=== PATIENT | female | born 1955 | race Caucasian/White ===

== ENCOUNTER 2023-05-01 06:09 | Day surgery (SDC) | payer BC, SELFPAY ==
--- NOTE | 2023-03-29 12:32 | CM ---
Patient is scheduled for an elective L TKR on 05/01/23- she is a same day patient. Spoke with patient prior to surgery. Introduced role of Orthopedic Navigator. Patient reports that she lives with her in a two story home. There are two steps
to enter and a flight of steps to the second floor. She plans to stay on the first floor. She currently functions independently and uses a rolling walker. She also has a cane, shower seat and raised toilet seat. She has never had [facility] services. PCP is
Edgar Coates.
Discussed orthopedic program and post surgical plans. Reviewed that she will have VN services initially and will then start outpatient PT. Patient selects [facility] (face sheet faxed to [facility] to facilitate confirmation of benefits) for his home care
needs and will go to for outpatient PT.
Patient is in agreement with plan and states that her will be home with her.
Patient will complete online education.
Plan: Orthopedic Navigator will remain available to assist with the care of patient and will reassess discharge needs after surgery.
[2023-04-12 08:58] VITALS: BMI 34.2
[2023-04-12 09:59] LABS: Hemoglobin 12.6 g/dL (12.0-16.0); Mean Corp Hgb Conc. 34.1 g/dL (33.0-37.0); Mean Corpuscular Hgb 31.6 pg (27.0-31.0); Mean Corpuscular Volume 92.7 fL (81.0-99.0); Mean Platelet Volume 10.9 fL (7.4-10.4); Platelet Count 248 10^3/uL (130-400); Red Blood Cell Count 3.99 10^6/uL (4.20-5.40); Red Cell Dist. Width 12.7 % (11.5-14.5); White Blood Cell Count 6.6 10^3/uL (4.8-10.8)
[2023-04-12 10:08] LABS: ALT (SGPT) 29 U/L (0-35); AST (SGOT) 32 U/L (14-36); Albumin 4.1 g/dl (3.5-5.0); Alkaline Phosphatase 83 U/L (38-126); Blood Urea Nitrogen 21 mg/dl (7-17); Calcium 9.1 mg/dl (8.4-10.2); Carbon Dioxide 28 mmol/L (22-30); Chloride 105 mmol/L (98-107); Estimated Creatinine Clearance 51 ml/min; Glucose 95 mg/dl (70-99); HDL Cholesterol 52 mg/dl; LDL Cholesterol, Calculated 101 mg/dl; Potassium 4.2 mmol/L (3.5-5.1); Sodium 138 mmol/L (135-145); Total Bilirubin 0.7 mg/dl (0.2-1.3); Total Cholesterol 171 mg/dl (50-199); Total Protein 6.6 g/dl (6.3-8.2); Triglyceride 93 mg/dl (10-149); Very Low Density Lipoprotein 18 mg/dl (0-30); eGFR > 60.00
[2023-04-12 14:46] VITALS: BMI 34.2
[2023-05-01] VITALS (14 sets, daily range): BP systolic 131–184; BP diastolic 67–98; PULSE 83; O2SAT 98; BMI 34.2
[2023-05-01] MEDS: CELEBREX 200 MG PO (06:42)
[2023-05-01] MEDS: TYLENOL 650 MG PO (06:42)
--- NOTE | 2023-05-01 07:50 | W.DS.TRANS ---
DC Summary - Television Service Engineer
-
Discharge Instructions:
Sleep Apnea Risk Low
Discharge Diagnosis/Procedures L TKA Dr. Simon 05/01/23
Diet As tolerated
Activity With Walker
Driving Restrictions No driving
Bathing Restrictions OK to Shower
Other Services PT,[facility]
Instructions:
Stand-Alone Forms: SDS Total Hip and Knee D/C
Changes to Home Medications: Yes
Discharge Medications:
DC Medications w/original date entered in [employer]
ascorbic acid (vitamin C) 500 mg tablet (Vitamin C) 1,000 mg PO DAILY 02/08/21
tohkkpzduj-eoayzygdthzap-jssymoia 50 mg-325 mg-40 mg capsule 1 cap PO BIDPRN PRN mirgraines 02/08/21
carvedilol 12.5 mg tablet 25 mg PO BID 02/08/21
cholecalciferol (vitamin D3) 25 mcg (1,000 unit) tablet 1,000 units PO DAILY 02/08/21
ezetimibe 10 mg tablet 10 mg PO QPM 02/08/21
hydralazine 25 mg tablet 50 mg PO BID 02/08/21
hydrochlorothiazide 12.5 mg tablet 12.5 mg PO DAILY 02/08/21
losartan 50 mg tablet 100 mg PO HS 02/08/21
multivitamin with folic acid 400 mcg tablet (Tab-A-Ricci) 1 tab PO DAILY 02/08/21
zinc gluconate 50 mg tablet 50 mg PO DAILY 02/08/21
diclofenac sodium 75 mg tablet,delayed release 75 mg PO DAILY 04/07/23
dicyclomine 20 mg tablet 20 mg PO DAILY 04/07/23
diphenhydramine HCl 25 mg capsule (Benadryl) 70 mg PO HS 04/07/23
evolocumab 140 mg/mL subcutaneous syringe (Repatha Syringe) 140 mg SC Q2W 04/07/23
tramadol 100 mg tablet 100 mg PO DAILY 04/07/23
cyclobenzaprine 5 mg tablet 5 mg PO BID muscle pain/sleep #30 tabs 04/12/23
dexamethasone 4 mg tablet 4 mg PO BID inflammation #6 tabs 04/12/23
famotidine 20 mg tablet 20 mg PO HS GI prophylaxis #30 tabs 04/12/23
gabapentin 300 mg capsule 300 mg PO HS sleep/pain #10 caps 04/12/23
meloxicam 15 mg tablet 15 mg PO DAILY anti-inflammatory #14 tabs 04/12/23
mupirocin 2 % topical ointment 1 applic topical BID infection prevention #1 tube 04/12/23
ondansetron 4 mg disintegrating tablet 4 mg PO Q6H PRN n/v #20 tabs 04/12/23
oxycodone 5 mg tablet 5 - 10 mg PO Q6HPRN PRN 1 tab moderate-2 tabs severe pain #30 tabs 04/12/23
acetaminophen 325 mg capsule (Tylenol) 650 mg PO QID #2 caps 05/01/23
aspirin 325 mg tablet 325 mg PO DAILY blood clot prevention #1 tab 05/01/23
docusate sodium 100 mg capsule (Colace) 100 mg PO BID stool softner #1 cap 05/01/23
magnesium hydroxide 400 mg/5 mL oral suspension (Milk of Magnesia) 30 ml PO HS PRN Constipation #1 mL 05/01/23
sennosides 8.6 mg tablet (Senokot) 17.2 mg PO BID laxative #2 tabs 05/01/23
Home Medication Changes
cyclobenzaprine 5 mg tablet 5 mg PO BID muscle pain/sleep #30 tabs 04/12/23
dexamethasone 4 mg tablet 4 mg PO BID inflammation #6 tabs 04/12/23
famotidine 20 mg tablet 20 mg PO HS GI prophylaxis #30 tabs 04/12/23
gabapentin 300 mg capsule 300 mg PO HS sleep/pain #10 caps 04/12/23
meloxicam 15 mg tablet 15 mg PO DAILY anti-inflammatory #14 tabs 04/12/23
mupirocin 2 % topical ointment 1 applic topical BID infection prevention #1 tube 04/12/23
ondansetron 4 mg disintegrating tablet 4 mg PO Q6H PRN n/v #20 tabs 04/12/23
oxycodone 5 mg tablet 5 - 10 mg PO Q6HPRN PRN 1 tab moderate-2 tabs severe pain #30 tabs 04/12/23
Pending Results: No
--- NOTE | 2023-05-01 10:30 | CM ---
Patient had planned L TKR today. Met with patient at bedside to review discharge plans. Patient will be returning home today with services through [facility]. On , 05/04, patient will start outpatient PT at . Reviewed MD follow up in two weeks
and patient has already scheduled her appointment.
Patient has her rolling walker here with her.
PT and [facility] were kept updated as to progress and discharge plans.
[2023-05-01] MEDS: ROXICODONE 5 MG PO (11:59)
[2023-05-01] MEDS: NORMOSOL-R 1000 IV (12:04)
[2023-05-01] MEDS: ANCEF 5 IV (12:33)
[2023-05-01] MEDS: TYLENOL 1000 MG PO (12:52)
--- NOTE | 2023-05-01 13:50 | PTCARENOTE ---
Patient post ambulation rated her pain above her left knee a 7/10 on the pain scale after ambulating with physical therapy. Patient stated she wants to go home and will take more pain medication at home as directed.
== END 2023-05-01 13:46 | disposition home health service (06) ==
LOC: SDS 06:09
PROVIDERS: ATTENDING PHYSICIAN Specialist; FAMILY PHYSICIAN Family Medicine; OTHER PHYSICIAN Internal Medicine Cardiovascular Disease; OTHER PHYSICIAN Physician Assistant Medical
DX: M17.12 Unilateral primary osteoarthritis, left knee (principal); E66.9 Obesity, unspecified; Z68.34 Body mass index [BMI] 34.0-34.9, adult; M51.36 Other intervertebral disc degeneration, lumbar region; I10 Essential (primary) hypertension; T39.395A Adverse effect of other nonsteroidal anti-inflammatory drugs [NSAID], initial encounter; Y93.89 Activity, other specified; K92.2 Gastrointestinal hemorrhage, unspecified
CPT/HCPCS: 27447; 36415; 73560; 80053; 80061; 83036; 85027; 87070; 97116; 97161; C1713; C1776

== ENCOUNTER 2023-05-18 12:59 | Outpatient (RCR) | payer BC, SELFPAY | END 2023-05-18 23:59 | disposition home or self-care (01) | LOC: RPT 12:59 | PROVIDERS: ATTENDING PHYSICIAN Specialist; FAMILY PHYSICIAN Family Medicine | DX: Z47.1 Aftercare following joint replacement surgery (principal); Z96.652 Presence of left artificial knee joint; Z73.6 Limitation of activities due to disability | CPT/HCPCS: 97110; 97112; 97116; 97140; 97162; 97530 ==

== ENCOUNTER 2023-05-31 06:46 | Outpatient (RCR) | payer BC, SELFPAY | END 2023-05-31 12:52 | disposition home or self-care (01) | LOC: RPT 06:46 | PROVIDERS: ATTENDING PHYSICIAN Specialist; FAMILY PHYSICIAN Family Medicine | DX: Z47.1 Aftercare following joint replacement surgery (principal); Z96.652 Presence of left artificial knee joint; Z73.6 Limitation of activities due to disability | CPT/HCPCS: 97110; 97530 ==

== ENCOUNTER → 2023-09-04 12:12 | Outpatient (REF) | payer BC, SELFPAY | LOC: HWRAD 12:12 | PROVIDERS: ATTENDING PHYSICIAN Internal Medicine Cardiovascular Disease; FAMILY PHYSICIAN Family Medicine | DX: R05.1 Acute cough (principal) | CPT/HCPCS: 71046 ==

== ENCOUNTER 2023-09-05 11:36 | Emergency (ER) | payer BC, SELFPAY ==
[2023-09-05 11:37] VITALS: BP 102/57
[2023-09-05 12:41] LABS: % Basophils 0.5 % (0-2); % Eosinophils 2.8 % (0-6); % Immature Granulocytes 0.2 % (0-0.5); % Lymphocytes 37.4 % (20.5-51.1); % Monocytes 11.4 % (1.7-9.3); % Neutrophils 47.7 % (42.2-75.2); Absolute Eosinophils 0.1 10^3/uL (0-0.7); Absolute Lymphocytes 1.6 10^3/uL (1.2-3.4); Absolute Monocytes 0.5 10^3/uL (0.1-0.6); Absolute Neutrophils 2.1 10^3/uL (1.4-6.5); Hematocrit 39.9 % (37.0-47.0); Hemoglobin 13.8 g/dL (12.0-16.0); Mean Corp Hgb Conc. 34.6 g/dL (33.0-37.0); Mean Corpuscular Hgb 30.9 pg (27.0-31.0); Mean Corpuscular Volume 89.3 fL (81.0-99.0); Mean Platelet Volume 10.3 fL (7.4-10.4); Nucleated Red Blood Cells % 0 %; Platelet Count 191 10^3/uL (130-400); Red Blood Cell Count 4.47 10^6/uL (4.20-5.40); Red Cell Dist. Width 12.4 % (11.5-14.5); White Blood Cell Count 4.3 10^3/uL (4.8-10.8)
[2023-09-05 12:57] LABS: Blood Urea Nitrogen 23 mg/dl (7-17); Calcium 9.1 mg/dl (8.4-10.2); Carbon Dioxide 25 mmol/L (22-30); Chloride 103 mmol/L (98-107); Glucose 117 mg/dl (70-99); Sodium 138 mmol/L (135-145); eGFR 41.49
[2023-09-05] MEDS: NSS 1000 IV (12:57)
[2023-09-05 13:04] VITALS: BP 98/56
--- NOTE | 2023-09-05 14:01 | ED.GENMED ---
History of Present Illness
General
Chief Complaint: Blood Pressure Problem
Source: patient, family and physician
Exam Limitations: none
Time Seen by Provider: 09/05/23 12:26
Nursing documentation reviewed up to this point in time: agreed with
Travel History
Have you had any contact with someone who has COVID-19?: No
Do you have any symptoms of coronavirus? Fever > 100 degrees, chills, cough, shortness of breath, sore throat, loss of taste or smell, muscle aches, or headache?: No
History of Present Illness
History of Present Illness:
68-year-old female with [place] history of hypertension hyperlipidemia presenting to the emergency department today after she had upper respiratory infection over the past few days noticed lightheadedness today while at work had a blood pressure
that was in the 80s over 40s and was sent to the ER. Denies any chest pain shortness of breath or additional concerns otherwise. Upper respiratory symptoms including nasal congestion cough.
Past History
Past History
ED Past Medical History: GERD, HTN, Hypercholesterolemia and Other (headaches/migraines; colitis January 2021)
ED Past Surgical History: Cholecystectomy
Social History
Tobacco: Non-smoker
Alcohol: None
Drug: None
Personal:
Living: with family
Employment: Employed (technology teacher office)
Family History
Family History: Other (Noncontributory)
Review of Systems
Review of Systems
Allergies reviewed?: Yes
All Other Systems: ROS reviewed and negative except as documented in HPI and ROS
Phy Exam
Physical Exam
Physical Exam:
GENERAL: Alert , in no apparent distress
EYE: pupils equal and reactive
NECK: Supple, no significant adenopathy.
ENT: Mild irritation of the posterior pharynx swollen boggy nasal turbinates o/p clr, mmm.
CARDIAC: Regular rate and rhythm .
LUNGS: Clear breath sounds bilaterally, no acute respiratory distress, no wheezes/rales/rhonchi
ABDOMEN: Soft, without focal tenderness, no r/g, no cvat
NEUROLOGICAL: Alert and oriented, no focal neuro deficits
SKIN: Warm and dry, skin intact.
MUSCULOSKELETAL: No edema, well perfused.
PSYCH: Normal and appropriate interaction.
Course
Orders/Labs/Results
Orders:
Orders
09/05/23 11:42
Electrocardiogram (*1) Urgent
Reason for Study: Chest Pain
EKG- Treatment ONCE
09/05/23 12:35
Basic Metabolic Panel Urgent
Complete Blood Count/With Diff Urgent
09/05/23 12:46
0.9% Sodium Chloride 1000 ml [Nss] 1,000 ml IV BOLUS
09/05/23 13:58
Orthostatic VS- Treatment ONCE
Vital Signs- Treatment ONCE
Frequency: Once
Abnormal Lab Results
09/05/23
12:35
WBC 4.3 L 10^3/uL
(4.8-10.8)
Monocytes % 11.4 H %
(1.7-9.3)
BUN 23 H mg/dl
(7-17)
Creatinine 1.4 H mg/dL
(0.6-1.0)
Glucose 117 H mg/dl
(70-99)
09/05/23 12:35
09/05/23 12:35
Vital Signs
Initial and Last Documented VS:
Initial Vital Signs
Temp Pulse Resp BP Pulse Ox
98.0 F 65 16 102/57 98
09/05/23 11:37 09/05/23 11:37 09/05/23 11:37 09/05/23 11:37 09/05/23 11:37
Last Documented Vital Signs
Temp Pulse Resp BP Pulse Ox
98.0 F 67 15 128/64 98
09/05/23 11:37 09/05/23 14:04 09/05/23 14:04 09/05/23 14:04 09/05/23 13:04
MDM/Problems Addressed
MDM/Problems Addressed:
68-year-old female presenting to the emergency department today with concerns of lightheadedness low blood pressure in the setting of recent upper respiratory syndrome. Upon arrival blood pressure in the low 100s over 50s. Pulse rate in the 60s
normal respiratory rate afebrile normal pulse ox. Labs did show an elevated creatinine level from patient's baseline which is typically 1.0 currently 1.4 could not some degree of dehydration. Patient was given a liter of fluid otherwise labs
unremarkable. EKG without acute findings. No emergent findings on examination. Lungs are clear heart sounds normal. She is able to tolerate by mouth. Blood pressure improving throughout ER stay stable for discharge at this time return
precautions given.
*Critical Care Note
Total Time (30-74mins, 75-104mins- exclusive of procedures): Not Applicable
ED Attending Note
-
Portions of this chart may have been created with voice recognition software.� Occasional wrong word or��sound alike� substitutions may have occurred due to the inherent limitations of voice recognition software.
Discharge Plan
Departure
Patient Disposition: Home (Routine Discharge)
Date of Disposition: 09/05/23
Time of Disposition: 14:37
Patient with high blood pressure during this ER visit?: No
Condition: Good
Covid-19: Not Applicable
Discharge Problem:
Acute viral syndrome, Dehydration
Instructions: Dehydration, Adult ED
Prescriptions:
No Action
losartan 50 MG tablet
100 mg PO HS
carvedilol 12.5 MG tablet
25 mg PO BID
hydralazine 25 MG tablet
50 mg PO DAILY
Patient Comments:
beginning of january patient was on 37.5mg bid but felt dizzy so decreased to 25mg bid
ezetimibe 10 MG tablet
10 mg PO QPM
hydrochlorothiazide 12.5 MG tablet
12.5 mg PO DAILY
zinc gluconate 50 MG tablet
50 mg PO DAILY
cholecalciferol (vitamin D3) 1,000 UNITS tablet
1,000 units PO DAILY
multivitamin with folic acid [Tab-A-Ricci] 1 TABLET tablet
1 tab PO DAILY
hsczmsfczl-jjyzozxodaiao-qgyt 1 EACH capsule
1 cap PO BIDPRN PRN (Reason: mirgraines)
ascorbic acid (vitamin C) [Vitamin C] 500 MG tablet
1,000 mg PO DAILY
diphenhydramine HCl [Benadryl] 25 mg Capsule
75 mg PO HS
Repatha Syringe 140 mg/mL Syringe
140 mg SC Q2W
famotidine 20 mg tablet
20 mg PO HS Qty: 30 0RF
Rx Instructions:
post-op
acetaminophen [Tylenol] 325 mg capsule
650 mg PO QID Qty: 2 0RF
Referrals:
Edgar Coates MD [Family Provider] -
Activity Restrictions/Additional Instructions:
You came to the emergency department today with concerns of lightheadedness and low blood pressure. Here symptoms improved after receiving fluids. You may have been dehydrated and did have elevated kidney function test which would indicate this.
Please rest over the next day or so as symptoms will hopefully be improving. Please make sure to stay hydrated at home. Return to the emergency department for any worsening, new or concerning symptoms.
Interventions
Interventions:
*Risk Screen - Suicide Last Done: 09/05/23 11:37
*General Assessment Last Done: 09/05/23 11:37
*Neglect/Abuse Screening Last Done: 09/05/23 11:37
ED- Cardiac Assessment Last Done: 09/05/23 13:03
ED- Neurological Assessment Last Done: 09/05/23 13:03
ED- Pulmonary Assessment Last Done: 09/05/23 13:03
Discharge Date and Time
Print Language: GERMAN
[2023-09-05 14:04] VITALS: BP 128/64
[2023-09-05 14:13] VITALS: BP 126/86; BP 136/71; BP 144/80; PULSE 62; PULSE 65; PULSE 70
== END 2023-09-05 14:50 | disposition home or self-care (01) ==
LOC: EMR 11:36
PROVIDERS: EMERGENCY PHYSICIAN Emergency Medicine; FAMILY PHYSICIAN Family Medicine
DX: B34.9 Viral infection, unspecified (principal); E86.0 Dehydration; I10 Essential (primary) hypertension; E78.00 Pure hypercholesterolemia, unspecified; K21.9 Gastro-esophageal reflux disease without esophagitis; Z90.49 Acquired absence of other specified parts of digestive tract
CPT/HCPCS: 99283; 96360; 96361; 80048; 85025; 93005

== ENCOUNTER → 2025-03-03 16:08 | Outpatient (REF) | payer BC, SELFPAY | LOC: RCS 16:08 | PROVIDERS: ATTENDING PHYSICIAN Internal Medicine Cardiovascular Disease; FAMILY PHYSICIAN Family Medicine | DX: I34.0 Nonrheumatic mitral (valve) insufficiency (principal); I10 Essential (primary) hypertension | CPT/HCPCS: 93306 ==